=== PATIENT | male | born 1960 | race Two or more races ===

== ENCOUNTER 2021-05-13 10:37 | Emergency (ER) | payer MEDICAID, OTHER ==
[~2021-05-13] VITALS: Ht 154.9 cm; Wt 65.8 kg
[2021-05-13 13:54] VITALS: BP 131/102
== END 2021-05-13 14:26 | disposition home or self-care (01) ==
LOC: ER 10:37
DX: I10 Essential (primary) hypertension (principal); Z48.01 Encounter for change or removal of surgical wound dressing

== ENCOUNTER 2021-08-25 21:53 | Inpatient (IN) | payer MEDICAID ==
[~2021-08-25] VITALS: Ht 162.6 cm; Wt 65.8 kg
[2021-08-25 23:10] LABS: Eosinophils # (auto) 0.1 10 ^3/uL (0-0.8); Hemoglobin 9.7 g/dL (13.5-17.5)
[2021-08-25 23:12] LABS: Basophils # (auto) 0 10 ^3/uL (0-0.2); Basophils % (auto) 0.8 % (0.0-2.0); Eosinophils % (auto) 3.6 % (0.0-7.0); Lymphocytes # (auto) 0.9 10 ^3/uL (0.4-5.4); Lymphocytes % (auto) 38.4 % (10.0-50.0); Mean Corpuscular Hgb Conc. 34.7 g/dL (32.0-36.0); Mean Corpuscular Volume 109.4 fL (80.0-100.0); Monocytes # (auto) 0.3 10 ^3/uL (0-1.3); Monocytes % (auto) 12.4 % (0.0-12.0); Neutrophils % (auto) 44.8 % (37.0-80.0); Nucleated Red Blood Cells % 0.2 %; Red Blood Cells 2.56 10^6/uL (4.5-5.90); Red Cell Distribution Width 17.1 % (11.8-14.3); White Blood Cell 2.3 10^3/uL (4.4-10.8)
[2021-08-25 23:29] LABS: Calcium 7.7 mg/dL (8.5-10.1)
[2021-08-25 23:34] LABS: BUN/Creatinine Ratio 17.1; Bilirubin, Total 1.6 mg/dL (0.2-1.0); Total Protein 7.2 g/dL (6.4-8.2)
[2021-08-25 23:36] LABS: Potassium 2.9 mmol/L (3.5-5.1)
[2021-08-26] MEDS ORDERED: POTASSIUM CHL 20 Meq TABLET PO ONE (00:15)
[2021-08-26] MEDS ORDERED: ONDANSETRON HCL 4 MG/2 ML VIAL IV ONE (00:15)
[2021-08-26] MEDS ORDERED: SODIUM CHLORIDE 0.9% 500 ML IV ONE (00:15)
[2021-08-26] MEDS ORDERED: MORPHINE SULFATE 4 MG/ML SYR/VIAL IV ONE (00:15)
[2021-08-26 00:38] LABS: Urine Bacteria NONE SEEN /hpf (None Seen); Urine Blood Negative /uL (Negative); Urine Specific Gravity 1.009 (1.001-1.035); Urine WBC 3 /hpf (0 - 3)
[2021-08-26] MEDS ORDERED: CEFTRIAXONE SODIUM 2 GM in D5W 5% 50 ML IV ONE (03:45)
[2021-08-26] MEDS ORDERED: POTASSIUM CHL 20MEQ/100ML 100 ML IV ONE (04:00)
[2021-08-26] MEDS ORDERED: LACTULOSE 20Gm/30ML SOLN PO ONE (04:00)
[2021-08-26] MEDS ORDERED: cefTRIAXone 1GM/50ML D5W 100 ML IV ONE (04:39)
[2021-08-26] MEDS ORDERED: ONDANSETRON HCL 4 MG/2 ML VIAL IV PRN (04:45)
[2021-08-26 05:47] LABS: INR 1.49 (0.9-1.15); Partial Thromboplastin Time 35.3 sec (23.6-33.0)
[2021-08-26] MEDS ORDERED: FUROSEMIDE 40 MG TAB PO SCH (06:00)
[2021-08-26 09:00] VITALS: BP 132/79
[2021-08-26] MEDS ORDERED: PANTOPRAZOLE 40 MG TAB PO SCH (10:00)
[2021-08-26] MEDS ORDERED: POTASSIUM CHL 10 Meq TABLET PO SCH (10:00)
[2021-08-26] MEDS ORDERED: LACTULOSE 20Gm/30ML SOLN PO SCH ×2 (10:00→14:00)
[2021-08-26] MEDS ORDERED: SPIRONOLACTONE 25 MG TAB PO SCH (10:00)
[2021-08-26] MEDS ORDERED: POTA8TAB15 PO (11:18)
[2021-08-26] MEDS ORDERED: APIX5TAB PO (11:18)
[2021-08-26] MEDS ORDERED: MULT1TAB28 PO (11:18)
[2021-08-26] MEDS ORDERED: FURO40TA4 PO (11:18)
[2021-08-26] MEDS ORDERED: LACT10SO3 PO (11:18)
[2021-08-26] MEDS ORDERED: PANT40T PO (11:18)
[2021-08-26] MEDS ORDERED: ZINC220C8 PO (11:18)
[2021-08-26] MEDS ORDERED: SPIR50TA5 PO (11:18)
[2021-08-26 13:00] VITALS: BP 128/73
[2021-08-26] MEDS ORDERED: POTA1TAB64 PO (15:43)
[2021-08-27] MEDS ORDERED: cefTRIAXone 1GM/50ML D5W 50 ML IV SCH (09:00)
== END 2021-08-26 17:15 | disposition left against medical advice (07) | DRG 280 ==
LOC: ER 21:56 → OVERFLOW 08-26 04:49 → WEST WING 08-26 07:57
PROVIDERS: ADMIT Nurse Practitioner; ATTEND Family Medicine
DX: K70.31 Alcoholic cirrhosis of liver with ascites (principal); D61.818 Other pancytopenia; E43 Unspecified severe protein-calorie malnutrition; D68.69 Other thrombophilia; D68.9 Coagulation defect, unspecified; E72.4 Disorders of ornithine metabolism; K76.6 Portal hypertension; N50.89 Other specified disorders of the male genital organs; E87.6 Hypokalemia; N50.819 Testicular pain, unspecified; Z20.822 Contact with and (suspected) exposure to COVID-19; Z53.29 Procedure and treatment not carried out because of patient's decision for other reasons; Z68.24 Body mass index [BMI] 24.0-24.9, adult; I10 Essential (primary) hypertension; Z79.01 Long term (current) use of anticoagulants; K59.00 Constipation, unspecified; Z86.718 Personal history of other venous thrombosis and embolism
CPT/HCPCS: 36415; 49082; 71045; 74176; 80053; 80320; 81001; 82140; 83690; 83986; 85025; 85610; 85730; 87040; 87086; 87205; 87426; 89051; 93005; 96361; 96365; 96367; 96368; 96375; G0378; J0696; J2405; J3480; J7060